=== PATIENT | male | born 1975 | race African-American/Black ===

== ENCOUNTER 2017-06-11 03:18 | Emergency (ER) | payer OTHER, MEDICAID ==
[~2017-06-11] VITALS: Ht 185.4 cm; Wt 134.0 kg
[2017-06-11 05:41] VITALS: BP 141/62
== END 2017-06-11 07:12 | disposition home or self-care (01) ==
LOC: ER 03:18
DX: I89.0 Lymphedema, not elsewhere classified (principal); R60.9 Edema, unspecified; Z68.38 Body mass index [BMI] 38.0-38.9, adult; E66.01 Morbid (severe) obesity due to excess calories
CPT/HCPCS: 99283

== ENCOUNTER 2017-06-26 20:22 | Emergency (ER) | payer MEDICAID, OTHER ==
[~2017-06-26] VITALS: Ht 185.4 cm; Wt 127.0 kg
[2017-06-27] MEDS ORDERED: HYDROCODONE/ACETAMINOPHEN 10/325MG TABLET PO ONE (06:30)
[2017-06-27] MEDS ORDERED: COLCHICINE 0.6MG TABLET PO ONE ×2 (07:45→08:00)
[2017-06-27 10:49] VITALS: BP 137/84
[2017-08-30] MEDS ORDERED: AZIT250T6 PO (04:14)
[2017-08-30] MEDS ORDERED: FURO20TA4 PO (04:14)
[2017-09-09] MEDS ORDERED: FURO-151 PO (12:27)
[2017-09-09] MEDS ORDERED: CEPH-569 PO (12:28)
== END 2017-06-27 10:52 | disposition home or self-care (01) ==
LOC: ER 20:36
DX: M10.9 Gout, unspecified (principal); I10 Essential (primary) hypertension; Z59.0 Homelessness
CPT/HCPCS: 36415; 73630; 84550; 99285; Z7610

== ENCOUNTER 2017-10-21 20:10 | Emergency (ER) | payer MEDICAID, OTHER ==
[~2017-10-21] VITALS: Ht 177.8 cm; Wt 135.0 kg
[~2017-10-21 20:10] MED LIST: CEPH-569 PO; FURO-151 PO
[2017-10-21 20:13] VITALS: BP 150/90
== END 2017-10-21 22:20 | disposition left against medical advice (07) ==
LOC: ER 20:13
DX: K08.89 Other specified disorders of teeth and supporting structures (principal); Z53.21 Procedure and treatment not carried out due to patient leaving prior to being seen by health care provider

== ENCOUNTER 2017-10-22 01:48 | Emergency (ER) | payer MEDICAID ==
[~2017-10-22] VITALS: Ht 177.8 cm; Wt 135.0 kg
[2017-10-22 01:57] VITALS: BP 147/98
== END 2017-10-22 07:36 | disposition left against medical advice (07) ==
LOC: ER 01:48
DX: Z53.21 Procedure and treatment not carried out due to patient leaving prior to being seen by health care provider (principal)

== ENCOUNTER 2019-01-04 03:12 | Emergency (ER) | payer MEDICAID, OTHER ==
[~2019-01-04] VITALS: Ht 180.3 cm; Wt 99.0 kg
[2019-01-04 05:33] VITALS: BP 130/78
== END 2019-01-04 09:31 | disposition left against medical advice (07) ==
LOC: ER 03:12
DX: Z53.21 Procedure and treatment not carried out due to patient leaving prior to being seen by health care provider (principal)

== ENCOUNTER 2019-04-13 19:42 | Emergency (ER) | payer MEDICAID, OTHER ==
[~2019-04-13] VITALS: Ht 177.8 cm; Wt 118.0 kg
[2019-04-13 21:35] LABS: CHLORIDE 105 mEq/L (98-107); HEMATOCRIT. 32.5 % (42.0-52.0); HEMOGLOBIN. 11.5 g/dL (14.0-18.0); MEAN CORPUSCULAR HEMOGLOBIN 33.4 pg (28.0-32.0); MEAN CORPUSCULAR VOLUME 94.6 fL (80.0-94.0); MEAN PLATELET VOLUME 9.8 fl (7.4-10.4); PLATELET 90 x1000/uL (130-400); RED BLOOD CELL COUNT 3.44 mill/uL (4.7-6.1); RED CELL DISTRIBUTION WIDTH 14.5 % (11.6-14.6)
[2019-04-13] MEDS ORDERED: SODIUM CHLORIDE 0.9% 1,000 ML IV ONE (21:35)
[2019-04-13 21:41] LABS: ETHANOL BLOOD 298 mg/dL
[2019-04-13 22:05] LABS: PLATELET ESTIMATE DECREASED
[2019-04-13] MEDS ORDERED: ASPIRIN 81MG TABLET PO ONE (23:15)
[2019-04-13] MEDS ORDERED: FUROSEMIDE 40MG/4ML VIAL IV ONE (23:15)
[2019-04-13] MEDS ORDERED: NITROGLYCERIN OINT 1GM/INCH UDPKT TD ONE (23:15)
[2019-04-14 01:38] LABS: *AMPHETAMINES SCREEN URINE NEGATIVE (NEGATIVE); *BARBITURATES SCREEN URINE NEGATIVE (NEGATIVE); *BENZODIAZEPINES SCREEN URINE NEGATIVE (NEGATIVE); *COCAINE SCREEN URINE NEGATIVE (NEGATIVE); CANNABINOID URINE SCREEN NEGATIVE (NEGATIVE); METHADONE URINE SCREEN NEGATIVE (NEGATIVE); OPIATES URINE SCREEN NEGATIVE (NEGATIVE); PHENCYCLIDINE URINE SCREEN NEGATIVE (NEGATIVE)
[2019-04-14 08:37] VITALS: BP 125/76
== END 2019-04-14 09:15 | disposition home or self-care (01) ==
LOC: ER 19:51 → EDBEDREQTM 04-14 00:09 → EDBEDREQ 04-14 00:09 → CANRESERV 04-14 00:21 → ENRESERV 04-14 00:21 → CANBEDREQ 04-14 01:49 → ER 04-14 09:15
DX: I50.9 Heart failure, unspecified (principal); F10.129 Alcohol abuse with intoxication, unspecified; Y90.8 Blood alcohol level of 240 mg/100 ml or more; Z59.0 Homelessness
CPT/HCPCS: 36415; 71045; 80053; 80305; 80320; 83880; 84484; 85025; 93970; 96374; 99284; J1940; J7030; G0480

== ENCOUNTER 2019-10-22 04:35 | Emergency (ER) | payer MEDICAID ==
[~2019-10-22] VITALS: Ht 177.8 cm; Wt 73.0 kg
[2019-10-22] MEDS ORDERED: SODIUM CHLORIDE 0.9% 1,000 ML IV ONE (06:40)
[2019-10-22 07:33] LABS: CHLORIDE 108 mEq/L (98-107); ETHANOL BLOOD 289 mg/dL
[2019-10-22 07:40] LABS: BASOPHILS % 1.5 % (0.0-2.0); EOSINOPHILS % 2.4 % (0.0-5.0); HEMATOCRIT. 31.9 % (42.0-52.0); HEMOGLOBIN. 10.8 g/dL (14.0-18.0); LYMPHOCYTES % 42.9 % (20.0-50.0); MEAN CORPUSCULAR HEMOGLOBIN 31.9 pg (28.0-32.0); MEAN CORPUSCULAR VOLUME 93.6 fL (80.0-94.0); MEAN PLATELET VOLUME 8.4 fl (7.4-10.4); MONOCYTES % 9.1 % (2.0-8.0); NEUTROPHILS % 44.1 % (40.0-76.0); PLATELET 139 x1000/uL (130-400); RED CELL DISTRIBUTION WIDTH 14.6 % (11.6-14.6)
[2019-10-22 10:55] VITALS: BP 110/62
== END 2019-10-22 13:15 | disposition home or self-care (01) ==
LOC: ER 04:35
DX: F10.129 Alcohol abuse with intoxication, unspecified (principal); Y90.8 Blood alcohol level of 240 mg/100 ml or more; I89.0 Lymphedema, not elsewhere classified; F17.200 Nicotine dependence, unspecified, uncomplicated; Z59.0 Homelessness; Z98.890 Other specified postprocedural states
CPT/HCPCS: 36415; 70450; 80053; 80320; 85025; 99284; J7030; G0480

== ENCOUNTER 2019-12-07 04:53 | Emergency (ER) | payer SELFPAY ==
[~2019-12-07] VITALS: Ht 182.9 cm; Wt 98.0 kg
[2019-12-07] MEDS ORDERED: KETOROLAC 30MG/ML VIAL IV STA (06:36)
[2019-12-07 06:52] LABS: CLARITY URINE CLEAR (CLEAR); COLOR URINE YELLOW (YELLOW); KETONES URINE NEGATIVE (NEGATIVE); LEUKOCYTE ESTERASE URINE NEGATIVE (NEGATIVE); NITRITE URINE NEGATIVE (NEGATIVE); OCCULT BLOOD URINE NEGATIVE (NEGATIVE); PH URINE 5.5 (4.5-8.0); PROTEIN URINE 1+ (NEGATIVE); SPECIFIC GRAVITY URINE 1.012 (1.005-1.030)
[2019-12-07 07:05] LABS: BASOPHILS % 1.7 % (0.0-2.0); EOSINOPHILS % 1.7 % (0.0-5.0); HEMOGLOBIN. 10.8 g/dL (14.0-18.0); LYMPHOCYTES % 36.2 % (20.0-50.0); MEAN CORPUSCULAR HEMOGLOBIN 30.5 pg (28.0-32.0); MEAN CORPUSCULAR VOLUME 90.3 fL (80.0-94.0); MEAN PLATELET VOLUME 9.3 fl (7.4-10.4); MONOCYTES % 9.6 % (2.0-8.0); NEUTROPHILS % 50.8 % (40.0-76.0); PLATELET 103 x1000/uL (130-400); RED BLOOD CELL COUNT 3.55 mill/uL (4.7-6.1); RED CELL DISTRIBUTION WIDTH 16.4 % (11.6-14.6)
[2019-12-07 07:12] LABS: CHLORIDE 106 mEq/L (98-107)
[2019-12-07 10:10] VITALS: BP 120/61
== END 2019-12-07 11:56 | disposition home or self-care (01) ==
LOC: EDUNIT# 04:53 → ER 04:53
DX: M79.89 Other specified soft tissue disorders (principal); G89.29 Other chronic pain; M79.605 Pain in left leg; M79.604 Pain in right leg; I50.9 Heart failure, unspecified; F17.290 Nicotine dependence, other tobacco product, uncomplicated; Z79.899 Other long term (current) drug therapy
CPT/HCPCS: 36415; 71045; 80053; 81003; 83880; 84484; 85025; 93005; 96374; 99284; 99406; J1885